=== PATIENT | female | born 1960 | race Hispanic/Latino ===

== ENCOUNTER 2017-12-22 09:14 | Day surgery (SDC) | payer MEDICAID ==
[2017-12-07 09:33] VITALS: BMI 35.2
[2017-12-22] MEDS ORDERED: Bupivacaine 0.5% Inj(30mL) IJ ONE (09:26)
[2017-12-22] MEDS ORDERED: ceFAZolin 1 GM in Sodium Chloride 0.9% 100 ML IVPB ONE (09:26)
[2017-12-22] MEDS ORDERED: Lidocaine 1% Inj (20ml) IJ ONE (09:26)
[2017-12-22] MEDS ORDERED: Sodium Chloride 0.9% 1,000 ML IV SCH (09:30)
--- NOTE | 2017-12-22 09:30 | CP.PCM.PN ---
Subjective - Date & Time of Evaluation Date of Evaluation: 12/22/17 Time of Evaluation: 09:30 - Subjective Subjective: Podiatry progress note for Dr. Dowd 57 y/o female with PMHx of thyroid and HTN was seen at bedside in [facility] pre- operatively for right foot surgery with Dr. Dowd this afternoon. Patient is AAOX3 and is in NAD. Patient states her previous surgery was in December of 2016 at [facility]. Patient states after her previous surgery any correction that was attained was quickly lost, and pain returned to her right foot. She also states that she experienced constipation from the pain medication following the surgery, but has been taking stool softeners leading upto the surgery. Patient complains of pain, worsened with ambulation. Patient reports she has been NPO since yesterday 8 PM. Patient denies any F/N/V/SOB/CP/ posterior calf pain. 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 Dowd Plan: Pt was seen and examined in [facility] Pt NPO status was confirmed All pre-op testing and clearance in chart Pt has exhausted all conservative treatment at this time and is opting for surgical intervention Pt was explained procedure and post-operative course All pt's questions were answered to satisfaction No guarantees were made Pt understands all risks, benefits and complications of procedure Pt will follow-up with Dr. Dowd within 1 week of surgery
--- NOTE | 2017-12-22 09:32 | CP.SDSHP ---
Same Day Surgery H & P - History Proposed Procedure: Right third metatarsal osteotomy, possible second metatarsal osteotomy, bunionectomy with opening base wedge, possible Reverdin, hammertoe correction of second and third digit Pre-Op Diagnosis: Painful hallux abductovalgus s/p previous corrective surgery, right foot. Painful hammertoes of second and third digits, right foot - Previous Medical/Surgical History Pain: 7. Previous Surgical History: Previous hallux abductovalgus corrective surgery with first metatarsal head osteotomy and second metatarsal head osteotomy - Allergies Allergies: Allergies No Known Allergies Allergy (Verified 11/03/17 08:14) - Physical Exam Mental Status: Alert & Oriented x3 - {Optional Preform as Required} Integument: WNL Ortho: Other (HAV right foot, hammertoes 2nd and third digit R foot) - Impression Pt. Evaluated Today:Candidate for Anesthesia & Procedure: Yes - Date & Time Date: 12/22/17 Time: 09:33 Short Stay Discharge - Short Stay Discharge Admitting Diagnosis/Reason for Visit: M20.11,M20.44,M77.41 Disposition: HOME/ ROUTINE Referrals: Isha Hudson MD [Primary Care Provider] -
[2017-12-22] MEDS ORDERED: Lactated Ringer's 1,000 ML IV ONE (09:35)
[2017-12-22 09:55] VITALS: TEMP 98.2
[2017-12-22] MEDS ORDERED: Dexamethasone 4 mg/1 ml ONE (12:42)
[2017-12-22] MEDS ORDERED: MethylPREDNISolone Depo 40 mg/ml Inj ONE (12:42)
[2017-12-22] MEDS ORDERED: Propofol 10 mg/ml Inj (20 ML) ONE (13:01)
[2017-12-22] MEDS ORDERED: Midazolam 2 MG/2 ML VIAL ONE (13:01)
[2017-12-22] MEDS ORDERED: Succinylcholine 200 mg/10 ml Inj IV ONE (13:06)
[2017-12-22] MEDS ORDERED: Lidocaine 2% Inj (20ml) IJ ONE ×3 (13:52→16:04)
[2017-12-22] MEDS ORDERED: Desflurane Inhalation Anesthetic Liq (240 ml) ONE (14:15)
[2017-12-22] MEDS ORDERED: Bupivacaine 0.25% Inj(30mL) IJ ONE ×2 (16:04)
[2017-12-22] MEDS ORDERED: Oxycodone/Acetaminophen 5/325 mg Tab PO PRN ×2 (16:41)
[2017-12-22] MEDS ORDERED: Lactated Ringer's 1,000 ML IV SCH (16:45)
--- NOTE | 2017-12-22 16:46 | PCM.SURG1 ---
Surgeon's Initial Post Op Note - Surgeon's Notes Surgeon: Dr. Dowd [employer] Laborer: Dr. Lopez PGY1 Type of Anesthesia: General Endo, Local Anesthesia Administered By: Dr. Carvajal, Dr. Lima Pre-Operative Diagnosis: Right foot hallux valgus deformity, elongated second and third metatarsals, second and third digit hammertoe deformity Operative Findings: see dictation. I - 15cc 1:1 mixture 2% lidocaine plain and 0.25% bupivicaine plain. Nick - nelson BOW plate 5mm with 2.7 screws x20,20,22,24 ; 2.0 x14mm screws x2; 2.0x18mm screw Post-Operative Diagnosis: same Operation Performed: Right foot first metatarsal double osteotomy, second metatarsal fadumo osteotomy, third metatarsal fadumo osteotomy, removal of hardware , second digit pipj arthroplasty, third digit pipj arthroplasty Specimen/Specimens Removed: none Estimated Blood Loss: EBL {In ML}: 25 Blood Products Given: N/A Drains Used: No Drains Post-Op Condition: Good Date of Surgery/Procedure: 12/22/17 Time of Surgery/Procedure: 16:51
[2017-12-22] MEDS: HYDROmorphone 0.5 mg/0.5 ml ISec IVP PRN ×3 (16:55→17:50)
[2017-12-22 18:53] VITALS: RESP 18
[2017-12-22 19:33] VITALS: O2SAT 94
[2017-12-22 20:14] VITALS: BP 140/71; PULSE 84
--- NOTE | 2017-12-23 11:17 | RAD ---
PROCEDURE: Right Foot Radiographs. HISTORY: s/p right foot surgery COMPARISON: Referred radiographs 09/13/2017. FINDINGS: BONES: Imaging through the digits is overpenetrated with the distal and middle phalanges of the 2nd and 3rd digits fully captured the patient appears to be status post arthrodesis to release the proximal inferior joints in both 2nd 3rd digits and possibly both the proximal and distal interphalangeal joints by 2 separate K-wires. Further, solid screws identified the distal 1st metatarsal bone as well as compression plate transfixed by 4 separate screws of the proximal to mid 1st metatarsal bone. Finally, solitary screw is identified the distal 1st 2nd and 3rd metatarsal bones presumably status post osteotomies. The revision of prior appendectomy appears to have recurrent. Cast is fine bony detail. No definitive new fracture or dislocation appreciated throughout the right foot excluding the distal segments of the 2nd and 3rd digits. Consider repeat radiography. JOINTS: As above. SOFT TISSUES: As above. OTHER FINDINGS: None. IMPRESSION: Status post arthrodesis affecting the 2nd and 3rd digits as well as osteotomies of the 1st 2nd and 3rd distal metatarsal bones and revision prior bunionectomy as per above. Cast obscures fine bony detail. Second and 3rd digits are suboptimally capture due to over penetration may consider. Radiography.
--- NOTE | 2017-12-24 19:55 | PCM.OP ---
Operative Report - Operative Report Date of Surgery/Procedure: 12/22/17 Time of Surgery/Procedure: 13:00 Surgeon: Dr. Dowd It Generalist: Dr. Karen Lopez PGY-1 Anesthesia/Sedation: General endotracheal + local Pre-Operative Diagnosis: 1. Right foot hallux valgus deformity. 2. Right foot elongated second metatarsal. 3. Right foot elongated third metatarsal. 4. Right foot second digit hammertoe deformity. 5. Right foot third digit hammertoe deformity Post-Operative Diagnosis: 1. Right foot hallux valgus deformity. 2. Right foot elongated second metatarsal. 3. Right foot elongated third metatarsal. 4. Right foot second digit hammertoe deformity. 5. Right foot third digit hammertoe deformity Indication for Surgery: Indications: The patient is a 57 year-old female with the above diagnoses. The patient has exhausted all conservative treatment at this time and now requests surgical intervention. The patient signed the consent after careful explanation of risks, benefits, complications and alternatives for surgical procedure. No guarantees were given nor implied. Operative Findings: I - 15cc 1:1 mixture 2% lidocaine plain and 0.25% bupivicaine plain. M - 2.0 x14mm screws x2 Procedure/Operation Description: 1. Removal of hardware. 2. Right foot first metatarsal double osteotomy. 3. Right foot second metatarsal removal of hardware. 4. Right foot second metatarsal revisional Demi osteotomy. 5. Right foot third metatarsal Demi osteotomy. 6. Right foot second digit PIPJ arthroplasty with K-wire fixation. 7. Right foot third digit PIPJ arthroplasty with K-wire fixation. 8. Extensor tenotomy of 4th digit. 9. Extensor tenotomy of 5th digit. 1. Removal of hardware. Attention was then directed to the dorsal aspect of the first metatarsal head, right foot where an approximately 10 cm linear longitudinal incision was made medial and parallel to the tendon of the extensor hallucis longus and involved the contour of the deformity. The incision was. deepened through the subcutaneous tissues using sharp and blunt dissection. Care was taken to identify and retract all vital neurovascular structures. All bleeders were cauterized and ligated as necessary. Attention was then directed to the first interspace via the original incision where the tendon of the extensor hallucis brevis was identified and tenectomized. The conjoined tendon of the adductor hallucis muscle was then identified and transected at its attachments to the base of the proximal phalanx of the hallux. At this time, the lateral contracture present on the hallux was noted to be reduced. At this time, an inverted L type capsulotomy was performed over the dorsal aspect of the first metatarsophalangeal joint. The periosteal and capsular structures were then carefully dissected free of their osseous attachments and reflected medially and laterally thus exposing the head of the first metatarsal into the operative site. At this time, two screws from a previous surgical procedure were identified in the head of the first metatarsal. Using a [employer] screwdriver, these two screws were aseptically removed and passed from the surgical site. The site was flushed with sterile saline and a bulb syringe. 2. Right foot first metatarsal double osteotomy. Attention was then directed to the medial aspect of the first metatarsal head where a through and through medial based incomplete wedge Reverdin osteotomy was created in the metaphyseal region of the bone utilizing an oscillating bone saw. We then created two osteotomies of the dorsal shelf running parallel to the long axis of the first metatarsal andthe other parallel to the PASA. An oblique arm was made plantarly to protect the sesamoid articular surface. When this was performed, a wedge of bone was removed and we feathered the lateral hinge. Once the lateral hinge had flexibility, our osteotomy was closed down in order to perform a closing wedge osteotomy. A 0.062 K-wire was used for temporary fixation of the distal first metatarsal osteotomy. A 2.0 screw measuring 18mm was then inserted in typical AO fashion. At this point we continued our periosteal dissection further proximally to the level of the first metatarsal base. The periosteum was then reflected off the metatarsal base. We then loaded the foot and measured approxmately 1.5 cm distal to the metatarsocuneiform joint as the location of our osteotomy. Making sure that we simulated loading of the foot, we created an osteotomy from medial to lateral with the sagittal bone saw perpendicular to the weghtbearing surface, simulated by loading the foot.The cut was made from medial to lateral with the lateral hinge was kept intact. A 1.6 K-wire was used as an axis guide to ensure that we did not break through the lateral hinge. Utilizing the osteotome we gently tapped and resected the osteotomy until we came in contact with the K- wire. We then utilized a manual distractor to open up the osteotomy site, keeping the lateral hinge intact. We then inserted a 5.0 mm [employer] BOW plate with the oblique screw holes going distally. Radiographic assessment was used to assess our plate placement and our osteotomy cut and plate placement were noted to be excellent, We then began inserting screws into the plate measuring 2.7 x 20 mm, 2.7 x 20 mm, 2.7 x 22 mm and a 2.7 x 24 mm [employer] screws.. Radiographic imaging was then used to assess our correction and it was noted to be excellent. The intermetatarsal angle reduced to approximately parallel to the second metatarsal. The wedge of bone previously removed from the Reverdin metatarsal head osteotomy was then used as a bone graft to fill the defect lateral to the [employer] BOW plate. An additional defect was noted medial and plantar to the plate, and 1 cc of DBX bone putty was used to fill the defect. 3. Right foot 2nd metatarsal removal of hardware. Attention was drawn to the second metatarsophalangeal joint. A linear incision was created just lateral to the second metatarsophalangeal joint. This was done to avoid postoperative contracture overlying the second rnetatarsophalangeal joint and for minimal scar formation clinically. The incision was carried down to deeper planes paying careful attention to all neurovascular structures that were retracted, ligated and cauterized as necessary. The incision was deepened down to the level of the long extensor tendon. The long extensor tendon was identified and tenotomized. Attention was drawn to the capsular and periosteal tissue. A sharp periosteal and capsular incision was created being careful not to score the articular cartilage at the second rnetatarsal head. The periosteal tissue was sharply reflected from this area to expose the head and the neck of the second metatarsophalangeal joint. At this time, a previous 2.0 screw was identified and removed with a [employer] screwdriver. The screw was passed from the surgical field. 4. Right foot 2nd metatarsal revisional Demi osteotomy. At this time with the use of a sagittal saw, a Demi type osteotomy was created at the second metatarsal starting from the most proximal portion of the articular cartilage at the dorsal aspect of the second rnetatarsal. An oblique cut was made from dorsal distal to proximal plantar. An additional osteotomy in the same orientation was made approx 3 mm proximal, allowing us to remove a wedge of bone. The capital fragment was transposed proximally to shorten the metatarsal. It was temporarily fixated with 0.045 inch K-wires, permanently fixated with a size 14mm 2.0 cortical screw, measured and inserted according to AO technique. The osteotomy was noted to be rectus and the parabola restored. 5. Right foot 3rd metatarsal Demi osteotomy. At this time with the use of a sagittal saw, a Demi type osteotomy was created at the third metatarsal starting from the most proximal portion of the articular cartilage at the dorsal aspect of the third rnetatarsal. An oblique cut was made from dorsal distal to proximal plantar. An additional osteotomy in the same orientation was made approx 3 mm proximal, allowing us to remove a wedge of bone. The capital fragment was transposed proximally to shorten the metatarsal. It was temporarily fixated with 0.045 inch K-wires, permanently fixated with a size 14mm 2.0 cortical screw, measured and inserted according to AO technique. The osteotomy was noted to be rectus and the parabola restored. 6. Right foot second digit PIPJ arthroplasty with K-wire fixation. Attention was then directed to the dorsal aspect of the second digit right foot where a linear longitudinal incision was made overlying the proximal interphalangeal joint of the second digit. The incision was deepened through subcutaneous tissue with care being taken to identify and. retract all vital neurovascular structures. All bleeders were cauterized and ligated as necessary. At this time, a transverse tenotomy and capsulotomy was performed to the proximal interphalangeal joint of the second digit, right foot. The head of the proximal phalanx was then freed of its capsular and ligamentous attachments. Next utilizing an sagittal saw, the head of. the proximal phalanx was resected and passed from the operative site. The wound was then flushed with copious amount of sterile saline. Next, a 0.045 inch K-wire was driven from the base of the middle phalanx exiting the distal aspect of the second digit. The K-wire was then retrograded proximally into the remaining aspect of the proximal phalanx. Correction of the deformity was assessed at this time and noted to be excellent. 7. Right foot third digit PIPJ arthroplasty with K-wire fixation. Attention was then directed to the dorsal aspect of the third digit right foot where a linear longitudinal incision was made overlying the proximal interphalangeal joint of the third digit. The incision was deepened through subcutaneous tissue with care being taken to identify and. retract all vital neurovascular structures. All bleeders were cauterized and ligated as necessary. At this time, a transverse tenotomy and capsulotomy was performed to the proximal interphalangeal joint of the third digit, right foot. The head of the proximal phalanx was then freed of its capsular and ligamentous attachments. Next utilizing an sagittal saw, the head of. the proximal phalanx was resected and passed from the operative site. The wound was then flushed with copious amount of sterile saline. Next, a 0.045 inch K-wire was driven from the base of the middle phalanx exiting the distal aspect of the third digit. The K-wire was then retrograded proximally into the remaining aspect of the proximal phalanx. Correction of the deformity was assessed at this time and noted to be excellent. 8. Extensor tenotomy of 4th digit. Attention was then directed to the dorsal aspect of the 4th metatarsal neck/distal shaft where it was noted that there was an extensor contracture causing elevation of the 4th digit. At this time, a percutaneous tenotomy was performed of the extensor tendon complex. This allowed the 4th digit to relax and plantarflex. 9. Extensor tenotomy of 5th digit. Attention was then directed to the dorsal aspect of the 5th metatarsal neck/distal shaft where it was noted that there was an extensor contracture causing elevation of the 5th digit. At this time, a percutaneous tenotomy was performed of the extensor tendon complex. This allowed the 5th digit to relax and plantarflex. Estimated Blood Loss: 25 cc Complications: none Discharge & Condition: Postoperative Condition: The patient tolerated the anesthesia and procedure well and was escorted to the recovery room with vital signs stable and neurovascular status intact to the right foot. This patient will remain non weight bearing in a below knee cast with crutches and will follow up with Dr. Dowd in [facility] podiatry clinic within one week of surgery.
== END 2017-12-22 22:45 | disposition home or self-care (01) ==
LOC: H.OPSURG 09:14 → H.MEDSURG1 20:27 → H.OPSURG 22:45
PROVIDERS: ATTEND Podiatrist
DX: M20.11 Hallux valgus (acquired), right foot (principal); M20.41 Other hammer toe(s) (acquired), right foot; M77.41 Metatarsalgia, right foot; I10 Essential (primary) hypertension
CPT/HCPCS: 28285; 28296; 73630; 88304; 97161; C1713; C1769; G8978; G8979; G8980; J0330; J0690; J1170; J2001; J2250; J2405; J2704; J3010; J7030; J7120